=== PATIENT | female | born 1980 | race Caucasian/White ===

== ENCOUNTER 2019-07-06 22:09 | Emergency (ER) | payer OTHER ==
[~2019-07-06] VITALS: Ht 170.2 cm; Wt 106.1 kg
[~2019-07-06 22:09] MED LIST: ONDA4ODT2 PO
[2019-07-06 22:20] VITALS: BP 130/70
--- NOTE | 2019-07-06 22:23 | NUR ---
TO LOBBY A/W BED AMBULATORY
--- NOTE | 2019-07-06 23:51 | NUR ---
pt ambulated to [facility]
[2019-07-06] MEDS ORDERED: KETOROLAC 30 MG/ML VIAL IM ONE (23:55)
[2019-07-07] MEDS ORDERED: predniSONE 20 MG TAB PO ONE (01:35)
[2019-07-07 02:15] VITALS: BP 121/80
--- NOTE | 2019-07-07 02:15 | NUR ---
Patient discharged with v/s stable. Written and verbal after care instructions given and explained. Patient alert, oriented and verbalized understanding of instructions. Ambulatory with steady gait. All questions addressed prior to discharge. ID band removed. Patient advised to follow up with PMD. Rx of [id number] MG given. Patient educated on indication of medication including possible reaction and side effects. Opportunity to ask questions provided and answered.
== END 2019-07-07 02:15 | disposition home or self-care (01) ==
LOC: MED 22:09
DX: M10.9 Gout, unspecified (principal); Z79.899 Other long term (current) drug therapy
CPT/HCPCS: 36415; 73620; 84550; 96372; 99283; J1885; J7512

== ENCOUNTER 2021-07-17 08:45 | Emergency (ER) | payer OTHER ==
[~2021-07-17] VITALS: Ht 170.2 cm; Wt 111.6 kg
[2021-07-17 08:49] VITALS: BP 159/78
--- NOTE | 2021-07-17 08:55 | NUR ---
PT AMBULATED TO ER BED 1 WITH A STEADY GAIT.
--- NOTE | 2021-07-17 09:15 | NUR ---
40 Y/O FEMALE C/O THROAT PAIN 3/ S/P EATING FRUIT WHILE DRIVING YESTERDAY. PT STATES SHE FELT LIKE THE PIT FROM THE FRUIT GOT STUCK IN HER THROAT. PREPORTS FEELING ANXIOUS, NO SIGNS OF RESPIRATORY DISTRESS, PATIENT SPEAKING IN CLEAR SENTENCES. DENIES FEVER/CHILLS. DENIES N/V/D. PMH: GENARO STONE
--- NOTE | 2021-07-17 09:50 | NUR ---
PT TAKEN TO XR VIA W/C.
--- NOTE | 2021-07-17 09:55 | NUR ---
PT TAKEN TO ER BED 1 VIA W/C.
[2021-07-17] MEDS ORDERED: NAPR-54 PO (10:27)
[2021-07-17] MEDS ORDERED: MAG-27 PO (10:27)
--- NOTE | 2021-07-17 10:38 | NUR ---
DPatient discharged with v/s stable. Written and verbal after care instructions ABOUT GLOBUS PHARYNGEUS AND SWALLOWED FOREIGN BODY given and explained. Patient alert, oriented and verbalized understanding of instructions. Ambulatory with steady gait. All questions addressed prior to discharge. ID band removed. Patient advised to follow up with PMD. Rx of MYLANTA MAXIMUM STRENGTH LIQ AND NAPROXEN given. Patient educated on indication of medication including possible reaction and side effects. Opportunity to ask questions provided and answered.
== END 2021-07-17 10:38 | disposition home or self-care (01) ==
LOC: MED 08:45
DX: T17.208A Unspecified foreign body in pharynx causing other injury, initial encounter (principal); E11.9 Type 2 diabetes mellitus without complications; X58.XXXA Exposure to other specified factors, initial encounter; Y93.89 Activity, other specified; Y92.89 Other specified places as the place of occurrence of the external cause; Y99.8 Other external cause status
CPT/HCPCS: 70360; 99283

== ENCOUNTER 2022-02-22 09:08 | Emergency (ER) | payer OTHER ==
[~2022-02-22] VITALS: Ht 170.2 cm; Wt 108.9 kg
[~2022-02-22 09:08] MED LIST changes: +MAG-27 PO; +NAPR-54 PO
[2022-02-22 09:34] VITALS: BP 140/95
[2022-02-22] MEDS ORDERED: KETOROLAC 15 MG/ML VIAL IM ONE (10:40)
--- NOTE | 2022-02-22 10:43 | NUR ---
PT SWABBED AND GIVEN TO LAB
[2022-02-22] MEDS ORDERED: IBUP-1842 PO (13:37)
[2022-02-22 14:07] VITALS: BP 128/80
== END 2022-02-22 14:01 | disposition home or self-care (01) ==
LOC: MED 09:08
DX: E11.649 Type 2 diabetes mellitus with hypoglycemia without coma (principal); Z20.822 Contact with and (suspected) exposure to COVID-19; Z79.4 Long term (current) use of insulin; Z79.899 Other long term (current) drug therapy
CPT/HCPCS: 70450; 82948; 87426; 87804; 96372; 99284; J1885

== ENCOUNTER 2023-05-14 14:44 | Emergency (ER) | payer OTHER ==
[~2023-05-14] VITALS: Ht 170.2 cm; Wt 117.0 kg
[~2023-05-14 14:44] MED LIST changes: +IBUP-1842 PO
[2023-05-14 15:14] VITALS: BP 127/77; PULSE 91; RESP 20; TEMP 98.8; O2SAT 100
[2023-05-14 16:31] LABS: FLU A ANTIGEN negative (NEGATIVE); FLU B ANTIGEN NEGATIVE (NEGATIVE)
[2023-05-14] MEDS ORDERED: KETOROLAC 30 MG/ML VIAL IM ONE (16:45)
[2023-05-14 16:47] LABS: BASOPHILS # (AUTO) 0.1 K/uL (0.00-0.22); BASOPHILS % (AUTO) 1.1 % (0.0-2.0); EOSINOPHILS # (AUTO) 0.3 K/uL (0-0.4); EOSINOPHILS % (AUTO) 4.3 % (0.0-4.0); HEMATOCRIT 39.1 % (36-48); HEMOGLOBIN 12.9 g/dL (12.0-16.0); LYMPHOCYTES # (AUTO) 2.4 K/uL (2.5-16.5); LYMPHOCYTES % (AUTO) 34.4 % (20.5-51.1); MEAN CORPUSCULAR HEMOGLOBIN 27 pg (27-31); MEAN CORPUSCULAR HGB CONC 33 g/dL (33-37); MEAN CORPUSCULAR VOLUME 82.2 fL (80-94); MONOCYTES # (AUTO) 0.5 K/uL (0.8-1.0); MONOCYTES % (AUTO) 7.7 % (1.7-9.3); NEUTROPHILS # (AUTO) 3.6 K/uL (1.8-7.7); NEUTROPHILS % (AUTO) 52.5 % (42.2-75.2); PLATELET COUNT (AUTO) 320 K/uL (140-450); RED BLOOD CELL COUNT(AUTO) 4.75 MIL/uL (4.20-5.40); RED CELL DISTRIBUTION WIDTH 14.4 % (11.6-13.7); WHITE BLOOD COUNT (AUTO) 6.9 K/uL (4.8-10.8)
[2023-05-14 16:58] LABS: ANION GAP 10.5 (8-16); CALCIUM 9.1 mg/dL (8.5-10.1); CARBON DIOXIDE 28.1 mmol/L (21-32); CREATININE 0.5 mg/dL (0.6-1.3); POTASSIUM 3.6 mmol/L (3.5-5.1)
[2023-05-14 17:37] LABS: APPEARANCE,URINE CLEAR (CLEAR); BILIRUBIN,URINE NEGATIVE (NEGATIVE); BLOOD, URINE NEGATIVE (NEGATIVE); COLOR,URINE YELLOW (YELLOW); LEUKOCYTE ESTERASE ,URINE TRACE (NEGATIVE); NITRITE, URINE NEGATIVE (NEGATIVE); PROTEIN,URINE NEGATIVE (NEGATIVE); UGLUCOSE NEGATIVE (NEGATIVE); UROBILINOGEN,URINE 0.2 EU/dL (0.2 - 1)
[2023-05-14 17:51] LABS: BACTERIA,URINE 2+ /HPF (None Seen); RBC,URINE 0 /HPF (0-5); SQUAMOUS EPITHELIAL CELL,UR 4-10 (MOD) /LPF (0-3 (FEW)); WBC,URINE 0-5 /HPF (0-5)
[2023-05-14 17:52] LABS: MUCUS,URINE None Seen /LPF (None Seen)
[2023-05-14] MEDS ORDERED: PROM118S5 PO (18:35)
[2023-05-14] MEDS ORDERED: FLONAS NS (18:35)
[2023-05-14] MEDS ORDERED: ONDA-188 SL (18:35)
[2023-05-14] MEDS ORDERED: NITR100C7 PO (18:35)
[2023-05-14] MEDS ORDERED: IBUP-2213 PO (18:37)
== END 2023-05-14 18:40 | disposition home or self-care (01) ==
LOC: MED 14:44
DX: K80.20 Calculus of gallbladder without cholecystitis without obstruction (principal); R30.0 Dysuria; J06.9 Acute upper respiratory infection, unspecified; R03.0 Elevated blood-pressure reading, without diagnosis of hypertension; Z20.822 Contact with and (suspected) exposure to COVID-19; Z79.899 Other long term (current) drug therapy; Z79.1 Long term (current) use of non-steroidal anti-inflammatories (NSAID)
CPT/HCPCS: 36415; 74176; 80048; 81001; 81025; 83690; 85025; 87086; 87426; 87804; 99284; J1885

== ENCOUNTER 2023-08-14 12:47 | Emergency (ER) | payer OTHER ==
[~2023-08-14] VITALS: Ht 170.2 cm; Wt 115.7 kg
[~2023-08-14 12:47] MED LIST changes: +FLONAS NS; +IBUP-2213 PO; +NAPR-337 PO; -NAPR-54 PO; +NITR100C7 PO; +ONDA-188 SL; +PROM118S5 PO
[2023-08-14 13:03] VITALS: BP 123/82; PULSE 115; RESP 18; TEMP 97.5; O2SAT 97
[2023-08-14] MEDS ORDERED: IBUPROFEN 600 MG TAB ONE (14:56)
[2023-08-14] MEDS: IBUPROFEN 600 MG TAB PO ONE (14:59)
[2023-08-14] MEDS: guaiFENesin DM 200/20 MG-10 ML 10 ML UDC PO ONE (14:59)
[2023-08-14] MEDS: NACL 0.9% 1,000 ML IV ONE (15:01)
[2023-08-14 15:17] LABS: BASOPHILS # (AUTO) 0.1 K/uL (0.00-0.22); BASOPHILS % (AUTO) 1.1 % (0.0-2.0); EOSINOPHILS % (AUTO) 0.1 % (0.0-4.0); HEMATOCRIT 39.8 % (36-48); HEMOGLOBIN 13.3 g/dL (12.0-16.0); LYMPHOCYTES # (AUTO) 1.5 K/uL (2.5-16.5); LYMPHOCYTES % (AUTO) 27.7 % (20.5-51.1); MEAN CORPUSCULAR HEMOGLOBIN 27 pg (27-31); MEAN CORPUSCULAR HGB CONC 33 g/dL (33-37); MEAN CORPUSCULAR VOLUME 82.4 fL (80-94); MONOCYTES # (AUTO) 0.6 K/uL (0.8-1.0); MONOCYTES % (AUTO) 10.8 % (1.7-9.3); NEUTROPHILS # (AUTO) 3.2 K/uL (1.8-7.7); NEUTROPHILS % (AUTO) 60.3 % (42.2-75.2); PLATELET COUNT (AUTO) 260 K/uL (140-450); RED BLOOD CELL COUNT(AUTO) 4.84 MIL/uL (4.20-5.40); RED CELL DISTRIBUTION WIDTH 14.6 % (11.6-13.7); WHITE BLOOD COUNT (AUTO) 5.3 K/uL (4.8-10.8)
[2023-08-14 15:49] LABS: ANION GAP 15.8 (8-16); CALCIUM 8.7 mg/dL (8.5-10.1); CARBON DIOXIDE 24.1 mmol/L (21-32); CREATININE 0.7 mg/dL (0.6-1.3); POTASSIUM 3.9 mmol/L (3.5-5.1)
[2023-08-14 16:31] LABS: FLU B ANTIGEN NEGATIVE (NEGATIVE)
[2023-08-14 16:32] LABS: FLU A ANTIGEN POSITIVE (NEGATIVE)
[2023-08-14] MEDS ORDERED: ACETAMINOPHEN EXTRA STRENGTH 500 MG TAB ONE (16:52)
[2023-08-14] MEDS ORDERED: TAM75 PO (16:54)
[2023-08-14] MEDS ORDERED: IBUP-2213 PO (16:54)
[2023-08-14] MEDS: ACETAMINOPHEN EXTRA STRENGTH 500 MG TAB PO ONE (16:55)
[2023-08-14] MEDS ORDERED: BENZ200C4 PO (16:55)
[2023-08-14 17:06] VITALS: BP 123/82; PULSE 115; RESP 18; TEMP 97.5; O2SAT 97
== END 2023-08-14 17:06 | disposition home or self-care (01) ==
LOC: MED 12:47
DX: J10.1 Influenza due to other identified influenza virus with other respiratory manifestations (principal); Z20.822 Contact with and (suspected) exposure to COVID-19; Z79.899 Other long term (current) drug therapy
CPT/HCPCS: 36415; 71045; 80048; 81025; 84484; 85025; 87426; 87804; 93005; 96360; 99285; J7030

== ENCOUNTER 2023-11-26 17:01 | Emergency (ER) | payer OTHER ==
[~2023-11-26] VITALS: Ht 170.2 cm; Wt 99.8 kg
[~2023-11-26 17:01] MED LIST changes: +BENZ200C4 PO; +ONDA4ODT PO; -ONDA4ODT2 PO; +TAM75 PO
[2023-11-26 17:37] VITALS: BP 135/81; PULSE 87; RESP 20; TEMP 98.3; O2SAT 87
[2023-11-26 17:38] VITALS: BP 135/81; PULSE 87; RESP 19; TEMP 98.3
[2023-11-26 17:55] VITALS: O2SAT 97
[2023-11-26 18:58] LABS: BASOPHILS # (AUTO) 0.1 K/uL (0.00-0.22); BASOPHILS % (AUTO) 1.1 % (0.0-2.0); EOSINOPHILS # (AUTO) 0.2 K/uL (0-0.4); EOSINOPHILS % (AUTO) 2.4 % (0.0-4.0); HEMATOCRIT 39.9 % (36-48); HEMOGLOBIN 12.9 g/dL (12.0-16.0); LYMPHOCYTES # (AUTO) 2.9 K/uL (2.5-16.5); LYMPHOCYTES % (AUTO) 36.1 % (20.5-51.1); MEAN CORPUSCULAR HEMOGLOBIN 27 pg (27-31); MEAN CORPUSCULAR HGB CONC 33 g/dL (33-37); MEAN CORPUSCULAR VOLUME 82.3 fL (80-94); MONOCYTES # (AUTO) 0.5 K/uL (0.8-1.0); MONOCYTES % (AUTO) 6.8 % (1.7-9.3); NEUTROPHILS # (AUTO) 4.3 K/uL (1.8-7.7); NEUTROPHILS % (AUTO) 53.6 % (42.2-75.2); PLATELET COUNT (AUTO) 297 K/uL (140-450); RED BLOOD CELL COUNT(AUTO) 4.85 MIL/uL (4.20-5.40); RED CELL DISTRIBUTION WIDTH 16.1 % (11.6-13.7)
[2023-11-26 19:09] LABS: ANION GAP 12.6 (8-16); CALCIUM 9.3 mg/dL (8.5-10.1); CARBON DIOXIDE 25.3 mmol/L (21-32); CREATININE 0.7 mg/dL (0.6-1.3); POTASSIUM 3.9 mmol/L (3.5-5.1)
[2023-11-26 19:15] LABS: ALANINE AMINOTRANSFERASE 67 U/L (12-78); ALBUMIN 3.2 g/dL (3.4-5.0); ALKALINE PHOSPHATASE 75 U/L (50-136); ASPARTATE AMINOTRANSFERASE 44 U/L (15-37); TOTAL BILIRUBIN 0.2 mg/dL (0.0-1.0); TOTAL PROTEIN, SERUM 8.2 g/dL (6.4-8.2)
[2023-11-26 19:21] LABS: BILIRUBIN,URINE NEGATIVE (NEGATIVE); BLOOD, URINE 3+ (NEGATIVE); COLOR,URINE YELLOW (YELLOW); LEUKOCYTE ESTERASE ,URINE TRACE (NEGATIVE); NITRITE, URINE NEGATIVE (NEGATIVE); PROTEIN,URINE 1+ (NEGATIVE); UGLUCOSE NEGATIVE (NEGATIVE); UROBILINOGEN,URINE 0.2 EU/dL (0.2 - 1)
[2023-11-26 19:23] LABS: APPEARANCE,URINE SLIGHTLY HAZY (CLEAR)
[2023-11-26 19:25] LABS: BACTERIA,URINE 1+ /HPF (None Seen); MUCUS,URINE None Seen /LPF (None Seen); SQUAMOUS EPITHELIAL CELL,UR 4-10 (MOD) /LPF (0-3 (FEW)); WBC,URINE 0-5 /HPF (0-5)
[2023-11-26 19:42] VITALS: O2SAT 97
[2023-11-26] MEDS: KETOROLAC 30 MG/ML VIAL IM ONE (20:04)
[2023-11-26 21:52] VITALS: O2SAT 97
[2023-11-26] MEDS ORDERED: METO-485 PO (22:21)
[2023-11-26] MEDS ORDERED: FAMO-90 PO (22:21)
== END 2023-11-26 22:57 | disposition home or self-care (01) ==
LOC: MED 17:01
DX: R10.13 Epigastric pain (principal); R10.30 Lower abdominal pain, unspecified; R73.9 Hyperglycemia, unspecified; Z90.49 Acquired absence of other specified parts of digestive tract; Z79.1 Long term (current) use of non-steroidal anti-inflammatories (NSAID); Z79.899 Other long term (current) drug therapy
CPT/HCPCS: 36415; 74176; 80048; 80076; 81001; 81025; 84484; 85025; 93005; 96372; 99285; J1885